=== PATIENT | female | born 1945 | race African-American/Black ===

== ENCOUNTER 2018-08-07 05:01 | Inpatient (IN) ==
[2018-08-07] MEDS ORDERED: VANCOMYCIN INJ 1,000 MG in SODIUM CHLORIDE 0.9% 250 ML IV ONE (06:00)
[2018-08-07] MEDS ORDERED: ACETAMINOPHEN 500 MG TABLET PO ONE (06:00)
[2018-08-07] MEDS ORDERED: DIAZEPAM 5 MG TABLET PO ONE (06:00)
[2018-08-07] MEDS ORDERED: FAMOTIDINE 20 MG TABLET PO ONE (06:00)
[2018-08-07] MEDS ORDERED: ceFAZolin 1,000 MG in SYRINGE 1 EACH IV ONE (06:00)
[2018-08-07] MEDS ORDERED: PREGABALIN 75 MG CAPSULE PO ONE (06:00)
[2018-08-07] MEDS ORDERED: LACTATED RINGERS 1,000 ML IV SCH (06:30)
[2018-08-07 06:35] LABS: Apearance,Urine CLOUDY (Clear); Bacteria,Urine Moderate /HPF (Few); Bilirubin,Urine Negative (Negative); Blood, Urine Small mg/dL (Negative); Glucose,Urine (UA) Negative (Negative); Hyaline Casts,Urine 3 /LPF (0-3); Ketones,Urine Negative (Negative); Mucus,Urine Occasional /LPF (Occasional); Nitrite,Urine Negative (Negative); Protein,Urine Negative; Squamous Epithelial Cell,Urine Occasional /HPF (0-10); Urine Color Yellow (Yellow); Urine Urobilinogen < 2.0 EU/DL (0.2-1.0); WBC,Urine 361 /HPF (0-6)
[2018-08-07] MEDS ORDERED: PREGABALIN 75 MG CAPSULE ONE (07:37)
[2018-08-07] MEDS ORDERED: FAMOTIDINE 20 MG TABLET ONE (07:38)
[2018-08-07] MEDS ORDERED: ceFAZolin 1,000 MG VIAL ONE (07:38)
[2018-08-07] MEDS ORDERED: ACETAMINOPHEN 500 MG TABLET ONE (07:38)
[2018-08-07] MEDS ORDERED: DIAZEPAM 5 MG TABLET ONE (07:38)
[2018-08-07] MEDS ORDERED: VANCOMYCIN 1,000 MG VIAL ONE (08:35)
[2018-08-07] MEDS ORDERED: TRANEXAMIC ACID 1,000 MG/10 ML VIAL ONE (09:20)
[2018-08-07] MEDS ORDERED: BUPIVACAINE 0.5% 50 ML VIAL ONE (09:20)
[2018-08-07] MEDS ORDERED: BACITRACIN OINT 0.9 GM PACK TOP ONE (09:20)
[2018-08-07] MEDS ORDERED: EPINEPHrine 1 MG/ML VIAL ONE (09:20)
[2018-08-07] MEDS ORDERED: DEXAMETHASONE 4 MG/1 ML VIAL ONE (09:20)
[2018-08-07] MEDS ORDERED: MECLIZINE 25 MG TABLET PO PRN (10:50)
[2018-08-07] MEDS ORDERED: oxyCODONE IR 5 MG TABLET PO PRN ×2 (10:52)
[2018-08-07] MEDS ORDERED: diphenhydrAMINE CAP 25 MG CAPSULE PO PRN (10:52)
[2018-08-07] MEDS ORDERED: MORPHINE 4 MG/1 ML VIAL IV PRN ×2 (10:52)
[2018-08-07] MEDS ORDERED: DEXTROSE 50% 25 GM/50 ML VIAL IV PRN (10:54)
[2018-08-07] MEDS ORDERED: GLUCAGON 1 MG VIAL IM PRN (10:54)
[2018-08-07] MEDS ORDERED: NON-FORMULARY MEDICATION (Albuterol Sulfate [Proair Hfa] 2 PUFF) INH SCH (11:00)
[2018-08-07] MEDS ORDERED: LIDOCAINE 1% 5 ML VIAL ONE (12:16)
[2018-08-07] MEDS ORDERED: PROPOFOL 200 MG/20 ML VIAL IV ONE (12:16)
[2018-08-07] MEDS ORDERED: GLYCOPYRROLATE 0.4 MG/2 ML VIAL ONE (12:17)
[2018-08-07] MEDS ORDERED: ONDANSETRON 4 MG/2 ML VIAL ONE (12:17)
[2018-08-07] MEDS ORDERED: PHENYLEPHRINE 1 MG/10 ML SYRINGE IV ONE (12:17)
[2018-08-07] MEDS ORDERED: SUCCINYLCHOLINE 200 MG/10 ML VIAL ONE (12:17)
[2018-08-07] MEDS ORDERED: SEVOFLURANE 1 UNIT/15 MINUTE INH ONE (12:17)
[2018-08-07] MEDS ORDERED: MIDAZOLAM 2 MG/2 ML VIAL ONE (12:17)
[2018-08-07] MEDS ORDERED: fentaNYL 100 MCG/2 ML VIAL ONE (12:17)
[2018-08-07] MEDS ORDERED: ROCURONIUM 100 MG/10 ML VIAL IV ONE (12:18)
[2018-08-07] MEDS ORDERED: NEOSTIGMINE 10 MG/10 ML VIAL ONE (12:18)
[2018-08-07] MEDS ORDERED: LACTATED RINGERS 1,000 ML IV ONE (12:18)
[2018-08-07] MEDS: LACTATED RINGERS 1,000 ML IV SCH ×2 (13:30→18:34)
[2018-08-07] MEDS: INSULIN LISPRO 100 UNIT/ML SUBCUT SCH ×3 (13:32→21:41)
[2018-08-07] MEDS: KETOROLAC 15 MG/1 ML VIAL IV SCH ×3 (13:59→22:49)
[2018-08-07] MEDS: ACETAMINOPHEN 500 MG TABLET PO SCH ×2 (15:52→21:30)
[2018-08-07] MEDS: ceFAZolin 2,000 MG in PREMIX 1 EACH IV SCH ×2 (15:53→22:50)
[2018-08-07] MEDS ORDERED: ENALAPRIL 20 MG TABLET PO ONE (17:39)
[2018-08-07] MEDS: MONTELUKAST 10 MG TABLET PO SCH (21:30)
[2018-08-07] MEDS: DOCUSATE SODIUM 100 MG CAPSULE PO SCH (21:30)
[2018-08-07] MEDS: FUROSEMIDE 80 MG TABLET PO SCH (21:31)
[2018-08-07] MEDS: INSULIN NPH/REGULAR 70/30 100 UNIT/ML SUBCUT SCH (22:03)
[2018-08-08] MEDS: ACETAMINOPHEN 500 MG TABLET PO SCH ×2 (03:09→09:44)
[2018-08-08 04:51] LABS: Basophils % 0.2 % (0.0-0.8); Eosinophils # 0.1 10*3/uL (0.0-0.87); Eosinophils % 0.5 % (0.00-10.9); Hematocrit 32.8 VOL% (35.7-47.0); Hemoglobin 10.6 GM/DL (12.0-16.0); Immature Granulocytes % 0.5 %; Immature Granulocytes Absolute 0.07 #; Lymphocytes # 0.9 10*3/uL (1.4-4.0); Lymphocytes % 7.3 % (21.3-54.2); Mean Corpuscular HGB Conc 32.3 GM/DL (32-36); Mean Corpuscular Volume 88.9 FL (87-102); Mean Platelet Volume 11.1 FL (9.6-12.0); Monocytes % 6.6 % (1.7-12.7); Neutrophils % 84.9 % (38.7-73.9); Platelet Count 191 T/CUMM (130-400); Red Blood Count 3.69 MC/CUMM (3.8-5.5); White Blood Count 12.8 T/CUMM (4-12)
[2018-08-08] MEDS: LACTATED RINGERS 1,000 ML IV SCH (04:56)
[2018-08-08] MEDS: KETOROLAC 15 MG/1 ML VIAL IV SCH (04:56)
[2018-08-08 05:16] LABS: Calcium 8.3 MG/DL (8.5-10.1); Osmolality,Calculated 288.5 MOS/KG (273-304)
[2018-08-08] MEDS ORDERED: ASPIRIN 325 MG TABLET ONE (05:50)
[2018-08-08] MEDS ORDERED: NITROGLYCERIN SL 0.4 MG TABLET SL ONE (05:50)
[2018-08-08] MEDS ORDERED: ASPIRIN CHEW 81 MG TABLET PO ONE (05:50)
[2018-08-08] MEDS: NITROGLYCERIN SL 0.4 MG TABLET SL PRN ×2 (05:51→05:56)
[2018-08-08] MEDS: ONDANSETRON 4 MG/2 ML VIAL IV PRN (05:56)
[2018-08-08] MEDS: DILTIAZEM CD 240 MG CAPSULE PO SCH (06:17)
[2018-08-08] MEDS: INSULIN LISPRO 100 UNIT/ML SUBCUT SCH ×4 (08:16→20:45)
[2018-08-08] MEDS: INSULIN NPH/REGULAR 70/30 100 UNIT/ML SUBCUT SCH ×2 (09:43→20:45)
[2018-08-08] MEDS: ENALAPRIL 20 MG TABLET PO SCH (09:43)
[2018-08-08] MEDS: traZODone 50 MG TABLET PO SCH (09:43)
[2018-08-08] MEDS: ASPIRIN CHEW 81 MG TABLET PO SCH (09:44)
[2018-08-08] MEDS: SULFAMETHOX/TRIMETHOPRIM 800-160 MG TABLET PO SCH ×2 (09:44→20:44)
[2018-08-08] MEDS: FUROSEMIDE 80 MG TABLET PO SCH ×2 (09:44→17:07)
[2018-08-08] MEDS: DOCUSATE SODIUM 100 MG CAPSULE PO SCH ×2 (09:44→20:45)
[2018-08-08] MEDS: CLOPIDOGREL 75 MG TABLET PO SCH (09:44)
[2018-08-08] MEDS: POTASSIUM CHLORIDE 20 MEQ TABLET PO SCH (09:44)
[2018-08-08] MEDS: OXYBUTYNIN 5 MG TABLET PO SCH (09:44)
[2018-08-08] MEDS: APIXABAN 2.5 MG TABLET PO SCH ×2 (13:53→20:44)
[2018-08-08] MEDS: CELECOXIB 200 MG CAPSULE PO SCH (17:07)
[2018-08-08] MEDS: MONTELUKAST 10 MG TABLET PO SCH (20:46)
[2018-08-09 05:37] LABS: Basophils # 0.1 10*3/uL (0.0-0.2); Basophils % 0.5 % (0.0-0.8); Eosinophils # 0.3 10*3/uL (0.0-0.87); Eosinophils % 2.9 % (0.00-10.9); Hematocrit 33.6 VOL% (35.7-47.0); Hemoglobin 10.8 GM/DL (12.0-16.0); Immature Granulocytes % 0.7 %; Immature Granulocytes Absolute 0.08 #; Lymphocytes # 1.6 10*3/uL (1.4-4.0); Lymphocytes % 14.3 % (21.3-54.2); Mean Corpuscular HGB Conc 32.1 GM/DL (32-36); Mean Corpuscular Volume 89.1 FL (87-102); Mean Platelet Volume 11.3 FL (9.6-12.0); Monocytes % 9.3 % (1.7-12.7); Neutrophils % 72.3 % (38.7-73.9); Platelet Count 193 T/CUMM (130-400); Red Blood Count 3.77 MC/CUMM (3.8-5.5); Red Cell Distribution Width 14.2 % (9.3-17.3); White Blood Count 11.4 T/CUMM (4-12)
[2018-08-09 06:06] LABS: Calcium 8.4 MG/DL (8.5-10.1); Osmolality,Calculated 284.1 MOS/KG (273-304)
[2018-08-09] MEDS: INSULIN LISPRO 100 UNIT/ML SUBCUT SCH ×4 (08:07→21:46)
[2018-08-09] MEDS: traZODone 50 MG TABLET PO SCH (08:34)
[2018-08-09] MEDS: CELECOXIB 200 MG CAPSULE PO SCH (08:35)
[2018-08-09] MEDS: ENALAPRIL 20 MG TABLET PO SCH (08:36)
[2018-08-09] MEDS: FUROSEMIDE 80 MG TABLET PO SCH ×2 (08:36→18:03)
[2018-08-09] MEDS: DILTIAZEM CD 240 MG CAPSULE PO SCH (08:36)
[2018-08-09] MEDS: CLOPIDOGREL 75 MG TABLET PO SCH (08:37)
[2018-08-09] MEDS: OXYBUTYNIN 5 MG TABLET PO SCH (08:38)
[2018-08-09] MEDS: ASPIRIN CHEW 81 MG TABLET PO SCH (08:38)
[2018-08-09] MEDS: POTASSIUM CHLORIDE 20 MEQ TABLET PO SCH (08:39)
[2018-08-09] MEDS: APIXABAN 2.5 MG TABLET PO SCH ×2 (08:39→21:45)
[2018-08-09] MEDS: DOCUSATE SODIUM 100 MG CAPSULE PO SCH ×2 (08:39→21:45)
[2018-08-09] MEDS: SULFAMETHOX/TRIMETHOPRIM 800-160 MG TABLET PO SCH (08:39)
[2018-08-09] MEDS: MAGNESIUM HYDROXIDE SUSP 30 ML UDCUP PO PRN ×2 (08:39→18:03)
[2018-08-09] MEDS: INSULIN NPH/REGULAR 70/30 100 UNIT/ML SUBCUT SCH ×2 (08:50→21:45)
[2018-08-09] MEDS: ONDANSETRON 4 MG/2 ML VIAL IV PRN (10:25)
[2018-08-09] MEDS ORDERED: KETOROLAC 30 MG/1 ML VIAL IV ONE (10:29)
[2018-08-09] MEDS: CIPROFLOXACIN 250 MG TABLET PO SCH ×2 (11:53→21:44)
[2018-08-09] MEDS ORDERED: TAMSULOSIN 0.4 MG CAPSULE PO SCH (21:00)
[2018-08-09] MEDS: MONTELUKAST 10 MG TABLET PO SCH (21:44)
[2018-08-10 05:37] LABS: Basophils % 0.3 % (0.0-0.8); Eosinophils # 0.3 10*3/uL (0.0-0.87); Eosinophils % 2.5 % (0.00-10.9); Hematocrit 32.5 VOL% (35.7-47.0); Hemoglobin 10.2 GM/DL (12.0-16.0); Immature Granulocytes % 0.6 %; Immature Granulocytes Absolute 0.07 #; Lymphocytes # 1.4 10*3/uL (1.4-4.0); Mean Corpuscular HGB Conc 31.4 GM/DL (32-36); Mean Corpuscular Volume 89.8 FL (87-102); Neutrophils % 75.6 % (38.7-73.9); Platelet Count 191 T/CUMM (130-400); Red Blood Count 3.62 MC/CUMM (3.8-5.5); Red Cell Distribution Width 14.2 % (9.3-17.3); White Blood Count 10.8 T/CUMM (4-12)
[2018-08-10] MEDS: INSULIN LISPRO 100 UNIT/ML SUBCUT SCH ×2 (09:30→12:15)
[2018-08-10] MEDS: INSULIN NPH/REGULAR 70/30 100 UNIT/ML SUBCUT SCH (09:31)
[2018-08-10] MEDS: ASPIRIN CHEW 81 MG TABLET PO SCH (09:32)
[2018-08-10] MEDS: traZODone 50 MG TABLET PO SCH (09:32)
[2018-08-10] MEDS: FUROSEMIDE 80 MG TABLET PO SCH (09:33)
[2018-08-10] MEDS: CELECOXIB 200 MG CAPSULE PO SCH (09:33)
[2018-08-10] MEDS: DILTIAZEM CD 240 MG CAPSULE PO SCH (09:34)
[2018-08-10] MEDS: ENALAPRIL 20 MG TABLET PO SCH (09:34)
[2018-08-10] MEDS: APIXABAN 2.5 MG TABLET PO SCH (09:35)
[2018-08-10] MEDS: DOCUSATE SODIUM 100 MG CAPSULE PO SCH (09:35)
[2018-08-10] MEDS: CIPROFLOXACIN 250 MG TABLET PO SCH (09:35)
[2018-08-10] MEDS: POTASSIUM CHLORIDE 20 MEQ TABLET PO SCH (09:36)
[2018-08-10] MEDS: MAGNESIUM HYDROXIDE SUSP 30 ML UDCUP PO PRN (09:38)
[2018-08-10] MEDS ORDERED: SODIUM PHOSPHATE ENEMA 133 ML BOTTLE RECTAL PRN (09:57)
[2018-08-10 12:24] VITALS: BP 171/67
== END 2018-08-10 13:45 | disposition swing bed (61) | DRG 470 ==
LOC: EDBD → N.OR 05:01 → N.SDSINP 05:02 → N.3E 10:52
PROVIDERS: ADMIT Orthopaedic Surgery; ATTEND Orthopaedic Surgery